=== PATIENT | male | born 1995 | race American Indian/Alaskan Native ===

== ENCOUNTER 2017-09-03 01:20 | Emergency (ER) | payer BC, OTHER ==
[~2017-09-03] VITALS: Ht 177.8 cm; Wt 104.3 kg
[2017-09-03] MEDS ORDERED: DAY TIME COLD-296 ML PO (01:29)
[2017-09-03] MEDS ORDERED: THERAFLU SEVER1 EAC3 PO (01:30)
[2017-09-03] MEDS ORDERED: OMEPRAZOLE20 MG PO (04:11)
== END 2017-09-03 04:34 | disposition home or self-care (01) ==
LOC: ED 01:20
DX: K30 Functional dyspepsia (principal); J20.9 Acute bronchitis, unspecified
CPT/HCPCS: 80053; 81001; 83690; 85025; 99283